=== PATIENT | male | born 1970 | race Caucasian/White ===

== ENCOUNTER 2017-08-29 17:12 | Emergency (ER) | payer OTHER ==
[2017-08-29 17:21] VITALS: O2SAT 98
--- NOTE | 2017-08-29 17:51 | EDPHY ---
H & P Stated Complaint: LOW BACK PAIN WEAKNESS/CAUSING HIM TO ALMOST FALL TO GROUND Time Seen by Provider: 08/29/17 17:50 HPI/ROS: HPI: This is a 47-year-old male who presents him Chief Complaint: LOW BACK PAIN WEAKNESS/CAUSING HIM TO ALMOST FALL TO GROUND Location: Bilateral lower back Quality: Pain Duration: 1-2 days Signs and Symptoms: No bleeding, no radiation, no numbness, + weakness, no tingling, no incontinence, + decreased range of motion, + pain Timing: Sudden, worse with flexion Severity: 10 out 10 Context: Patient has a history of scoliosis and lordosis presents with sudden onset of bilateral local lower back pain, that is constant and nonradiating and severe nature to the point that he is unable to stand on his feet due to pain and almost fell to the ground. Patient reports that he has had lumbar back strains in the past but none recently. Originally from [place] and has not had any imaging in the last 2-5 years. He denies any injury/trauma. No prior history of kidney stones. Denies any hematuria/urinary symptoms. Patient reports that he is under a lot of stress lately and has even been grinding his teeth. Modifying Factors: Has tried [id number] medications without relief Comment: ROS: see HPI Constitutional: No fever, no chills, no weight loss Eyes: No blurred vision Respiratory: No shortness of breath, no cough Cardiovascular: No chest pain Gastrointestinal: No nausea, no vomiting no diarrhea Genitourinary: No dysuria Extremities: No myalgias Neurologic: No weakness, no numbness Skin: No rashes Hematologic: No bruising, no bleeding MEDICAL/SURGICAL/SOCIAL HISTORY: Medical history: SCOLIOSIS/LORDOSIS/VERTEBRAL FX/ L LEG FX Surgical history: Denies Social history: CONSTITUTIONAL: Pleasant adult white male, at bedside, awake and alert, moderate distress HEENT: Atraumatic and normocephalic. NECK: supple, no midline tenderness, flexion 45 degrees, extension 45 degrees, right and left lateral flexion 45 degrees. No meningismus. Cardiovascular: Normal S1/S2, regular rate, regular rhythm, without murmur rub or gallop. PULMONARY/CHEST: Symmetrical and nontender. no crepitus. Clear to auscultation bilaterally. Good air movement. No accessory muscle usage. ABDOMEN: Soft, nondistended, nontender, no ecchymosis. PELVIC: no pain with rocking; bilateral hips flexion 125 degrees, extension 30 degrees, with no pain internal rotation and no pain external rotation. BACK: No midline tenderness, + moderate bilateral reproducible paraspinous spasm, deep tendon reflexes 2/2, + bilateral pain with straight leg raise. Bilateral HIP: Flexion to 125, extension to 115, hyper extension to 15, abduction to 45. Pain in the lower back with internal rotation and external rotation but denies in the hip. No tenderness over greater trochanter. EXTREMITIES: 2/2 pulses, no deformities, no clubbing, no cyanosis or edema. NEUROLOGICAL: no focal neuro deficits. GCS 15. Light touch sensation intact. SKIN: Warm and dry, no erythema. no rash. Good capillary refill. Source: Patient, Family () Exam Limitations: No limitations - Personal History Current Tetanus/Diphtheria Vaccine: No - Medical/Surgical History Hx Asthma: No Hx Chronic Respiratory Disease: No Hx Diabetes: No Hx Cardiac Disease: No Hx Renal Disease: No Hx Cirrhosis: No Hx Alcoholism: No Hx HIV/AIDS: No Hx Splenectomy or Spleen Trauma: No Other PMH: SCOLIOSIS/LORDOSIS/VERTEBRAL FX L LEG FX - Social History Smoking Status: Current some day smoker Constitutional: Initial Vital Signs Temperature (C) 36.6 C 08/29/17 17:18 Heart Rate 83 08/29/17 17:18 Respiratory Rate 20 08/29/17 17:18 Blood Pressure 117/72 08/29/17 17:18 O2 Sat (%) 98 08/29/17 17:18 O2 Delivery Mode Room Air Allergies/Adverse Reactions: No Known Allergies Allergy (Unverified 08/29/17 17:17) Home Medications: Medication Instructions Recorded Cyclobenzaprine [Flexeril 10 MG 10 mg PO TID PRN #12 tab 08/29/17 (*)] methylPREDNISolone [Medrol Dose 1 each PO AD #0 ea 08/29/17 Kenneth] oxyCODONE/APAP 5/325 [Percocet 1 - 2 tab PO Q4H PRN #12 tab 08/29/17 5/325 (*)] Medical Decision Making - Diagnostics Imaging Results: Imaging Impressions Lumbar Spine MRI 08/29/17 17:57 Impression: 1. Segmentation variation with rudimentary disk at the S1-S2 level. 2. Diffuse broad-based disk bulge at L5-S1 resulting in moderate bilateral neural foraminal stenosis, worse left than right. Findings discussed with Emergency Department physician assistant professor of radiology, Siomara Portillo on 08/29/2017, 20:13. ED Course/Re-evaluation: MRI lumbar spine as well as IV medications ordered Given IV Valium, IV Toradol, IV Decadron with adequate relief No signs of neurovascular compromise/tenting of skin/compartment syndrome/ extremities and joints examined above and below area of concern and are neurovascularly intact. Called by radiologist who advised L5-S1 moderate disc bulge and moderate narrowing. 2020: Reassessed patient who reports his pain is down to 3/10 and is now able to move his legs and ambulate without assistance. Will give patient a Medrol Dosepak, muscle relaxers, pain medications neurosurgery follow-up Differential Diagnosis: Back pain including but not limited to muscular pain, herniated disc, spine fracture, intra-abdominal causes and urinary tract infection. - Data Points Medications Given: Discontinued Medications Dexamethasone (Decadron Injection) 8 mg IVP EDNOW ONE Stop: 08/29/17 17:58 Last Admin: 08/29/17 18:26 Dose: 8 mg Diazepam (Valium Injection) 5 mg IVP EDNOW ONE Stop: 08/29/17 17:58 Last Admin: 08/29/17 18:26 Dose: 5 mg Ketorolac Tromethamine (Toradol) 15 mg IVP EDNOW ONE Stop: 08/29/17 17:58 Last Admin: 08/29/17 18:25 Dose: 15 mg Departure - Departure Disposition: Home, Routine, Self-Care Clinical Impression: Herniation of intervertebral disc between L5 and S1 Condition: Good Instructions: Lumbar Disc Herniation (ED) Additional Instructions: Rest as much as possible but please continue to walk and ambulate to prevent stiffness. Take all medications as directed. Follow up with Neurosurgery in 7-10 days at which time they will evaluate and recommend with you if conservative management versus surgery is indicated. Referrals: José Miguel Santamaria MD [Medical Doctor] - As per Instructions Prescriptions: Cyclobenzaprine [Flexeril 10 MG (*)] 10 mg PO TID PRN #12 tab PRN Reason: Spasms methylPREDNISolone [Medrol Dose Kenneth] 1 each PO AD #0 ea oxyCODONE/APAP 5/325 [Percocet 5/325 (*)] 1 - 2 tab PO Q4H PRN #12 tab PRN Reason: Pain, Severe
[2017-08-29] MEDS ORDERED: DIAZEPAM 10 MG/2 ML SYR IVP ONE (17:57)
[2017-08-29] MEDS ORDERED: KETOROLAC 15 MG/1 ML SDV IVP ONE (17:57)
[2017-08-29] MEDS ORDERED: DEXAMETHASONE 4 MG/ML VIAL IVP ONE (17:57)
[2017-08-29] MEDS ORDERED: DEXAMETHASONE 4 MG/ML VIAL ONE (18:23)
[2017-08-29] MEDS ORDERED: CYCLOBENZAPRINE 10MG PREPACK#3 BTL TAKEHOME ONE ×2 (20:35→20:43)
[2017-08-29 20:48] VITALS: BP 101/61; PULSE 70; RESP 16; TEMP 98.4
== END 2017-08-29 20:48 | disposition home or self-care (01) ==
DX: M51.27 Other intervertebral disc displacement, lumbosacral region (principal); F17.200 Nicotine dependence, unspecified, uncomplicated
CPT/HCPCS: 96374; J1100; J1885